=== PATIENT | male | born 1960 | race Caucasian/White ===

== ENCOUNTER 2016-07-29 15:36 | Inpatient (IN) | payer MEDICARE, MEDICAID ==
[~2016-07-29 15:36] MED LIST: AMBIEN10 MG PO; DILANTIN100 MG PO; IBUPROFEN200 M1 PO; LEXAPRO10 MG PO; LIPITOR20 MG PO; NORCO 5/325 TAB1 TAB PO; TRAZODONE50 MG
[2016-07-29] MEDS ORDERED: LIPITOR40 M1 PO (15:42)
[2016-07-29] MEDS ORDERED: LEXAPRO10 M2 PO ×2 (15:42→17:25)
[2016-07-29] MEDS ORDERED: TRAZODONE HCL50 M1 PO (15:42)
[2016-07-29] MEDS ORDERED: DILANTIN100 M1 PO (15:42)
[2016-07-29] MEDS ORDERED: DEPAKOTE ER500 M1 PO (15:42)
[2016-07-29 16:45] LABS: BASO % 0.2 % (0-2); EOS % 0.5 % (0-7); EOSINOPHIL ABSOLUTE COUNT 0.1 tho/cmm (0.0-0.7); HCT-HEMATOCRIT 39.7 % (36.0-53.5); HGB-HEMOGLOBIN 13.8 gm/dl (13.5-17.0); IMMATURE GRANULOCYTES ABSOLUTE 0.03 tho/cmm (0-0.03); IMMATURE GRANULOCYTES PERCENT 0.2 % (0-0.3); LYMPH % 7.5 % (20-45); LYMPH ABSOLUTE COUNT 0.9 tho/cmm (0.8-4.5); MCH (MEAN CORPUSCULAR HGB) 30.5 pg (28.0-32.0); MCHC MEAN CORPUSCULAR HGB CONC 34.8 % (32.0-36.0); MCV (MEAN CELL VOLUME) 87.8 fl (82.0-96.0); MONO % 8.3 % (0-12); NEUTROPHIL ABSOLUTE COUNT 10.2 tho/cmm (1.6-8.0); NEUTROPHIL-AUTOMATED 10.2 tho/cmm (1.6-8.0); NEUTROPHILS % 83.3 % (40-80); PLATELET COUNT 180 tho/cmm (150-450); RED BLOOD COUNT 4.52 mil/cmm (4.40-5.70); RED CELL DISTRIBUTION WIDTH 12.8 % (12.4-16.4); WHITE BLOOD COUNT 12.2 tho/cmm (4.0-10.0)
[2016-07-29 17:09] LABS: ALB/GLOB RATIO 0.8 (0.8-2.0); ALBUMIN 3.7 g/dl (3.5-5.0); ALCOHOL (ETOH) <10 mg/dl (<10); ALKALINE PHOSPHATASE 104 U/L (33-138); ALT/SGPT 23 U/L (12-78); ANION GAP 13 mmol/L (0-20); AST/SGOT 16 U/L (10-40); BILIRUBIN,TOTAL 0.4 mg/dl (0.0-1.5); BLOOD UREA NITROGEN 16 mg/dl (6-24); CALCIUM 9.3 mg/dl (8.5-10.5); CARBON DIOXIDE-VENOUS 30 mmol/L (22-32); CHLORIDE 99 mmol/l (96-110); CREATININE 0.91 mg/dl (0.60-1.30); GLUCOSE 110 mg/dL (70-110); LIPASE 159 U/L (73-393); MAGNESIUM 2.2 mg/dl (1.3-2.6); PHOSPHOROUS 3.6 mg/dl (2.5-4.9); POTASSIUM 3.7 mmol/L (3.7-5.1); SODIUM 138 mmol/L (135-145); VALPROIC ACID (DEPAKOTE) 36 ug/ml (50-100); eGFR VALUE FOR BLACK >90 mL/Min
[2016-07-29 17:15] LABS: PROTHROMBIN TIME 11.4 SECONDS (9.0-13.6)
[2016-07-29] MEDS ORDERED: VITAMIN D31000 UNI3 PO (17:25)
[2016-07-29] MEDS ORDERED: TYLENOL WITH C1 EACH PO (17:26)
[2016-07-29] MEDS ORDERED: OS-CAL 500+D31 EAC1 PO (17:26)
[2016-07-29] MEDS ORDERED: AMOXICILLIN875 M1 PO (17:26)
[2016-07-29 20:55] LABS: URINE BILIRUBIN SMALL (NEG); URINE BLOOD MODERATE (NEG); URINE GLUCOSE (UA) NEGATIVE (NEG); URINE KETONE MODERATE (NEG); URINE LEUKOCYTE ESTERASE POSITIVE (NEG); URINE NITRITE NEGATIVE (NEG); URINE PROTEIN MODERATE (NEG)
[2016-07-29 20:56] LABS: URINE APPEARANCE HAZY; URINE COLOR YELLOW
[2016-07-29 21:04] LABS: URINE EPITHELIAL CELLS 0-1 /[HPF] (0-10)
[2016-07-29 21:05] LABS: URINE BACTERIA 1+
[2016-07-30 05:52] LABS: BASO % 0.2 % (0-2); EOS % 1.1 % (0-7); EOSINOPHIL ABSOLUTE COUNT 0.1 tho/cmm (0.0-0.7); HCT-HEMATOCRIT 34.5 % (36.0-53.5); HGB-HEMOGLOBIN 11.8 gm/dl (13.5-17.0); IMMATURE GRANULOCYTES ABSOLUTE 0.02 tho/cmm (0-0.03); IMMATURE GRANULOCYTES PERCENT 0.2 % (0-0.3); LYMPH % 10.9 % (20-45); LYMPH ABSOLUTE COUNT 1.1 tho/cmm (0.8-4.5); MCHC MEAN CORPUSCULAR HGB CONC 34.2 % (32.0-36.0); MCV (MEAN CELL VOLUME) 87.8 fl (82.0-96.0); MEAN PLATELET VOLUME 10.8 cmc (9.4-12.4); MONO % 12.4 % (0-12); MONOCYTE ABSOLUTE COUNT 1.3 tho/cmm (0.0-1.2); NEUTROPHIL ABSOLUTE COUNT 7.7 tho/cmm (1.6-8.0); NEUTROPHIL-AUTOMATED 7.7 tho/cmm (1.6-8.0); NEUTROPHILS % 75.2 % (40-80); PLATELET COUNT 152 tho/cmm (150-450); RED BLOOD COUNT 3.93 mil/cmm (4.40-5.70); RED CELL DISTRIBUTION WIDTH 12.9 % (12.4-16.4); WHITE BLOOD COUNT 10.3 tho/cmm (4.0-10.0)
[2016-07-30 06:11] LABS: ANION GAP 12 mmol/L (0-20); BLOOD UREA NITROGEN 13 mg/dl (6-24); CALCIUM 8.5 mg/dl (8.5-10.5); CARBON DIOXIDE-VENOUS 28 mmol/L (22-32); CHLORIDE 102 mmol/l (96-110); CREATININE 0.83 mg/dl (0.60-1.30); GLUCOSE 106 mg/dL (70-110); POTASSIUM 3.9 mmol/L (3.7-5.1); SODIUM 138 mmol/L (135-145); eGFR VALUE FOR BLACK >90 mL/Min
[2016-07-30 06:15] LABS: TSH-THYROID STIMULATING HORM. 1.32 uIU/ml (0.40-3.80)
[2016-07-30] MEDS ORDERED: NORCO 5-325 TA1 EACH PO (14:52)
[2016-07-30] MEDS ORDERED: PHENYTOIN SODI100 M2 PO (14:59)
[2016-07-30] MEDS ORDERED: ZOFRAN4 M2 SL ×2 (15:01→15:04)
== END 2016-07-30 17:40 | DRG 86 ==
LOC: EDMED 15:36 → EMR2 19:10 → CCU 20:55
PROVIDERS: Emergency Medicine; Internal Medicine Cardiovascular Disease; ADMIT Hospitalist
DX: S06.5X0A Traumatic subdural hemorrhage without loss of consciousness, initial encounter (principal); I69.354 Hemiplegia and hemiparesis following cerebral infarction affecting left non-dominant side; Z91.14 Patient's other noncompliance with medication regimen; W19.XXXA Unspecified fall, initial encounter; Z85.038 Personal history of other malignant neoplasm of large intestine; G40.909 Epilepsy, unspecified, not intractable, without status epilepticus; E78.5 Hyperlipidemia, unspecified; H91.90 Unspecified hearing loss, unspecified ear; F17.210 Nicotine dependence, cigarettes, uncomplicated; G47.00 Insomnia, unspecified; Z23 Encounter for immunization
CPT/HCPCS: G0009; G0480; J1953; J2270; J2405; J7030; Q2009

== ENCOUNTER 2016-07-31 21:28 | Inpatient (IN) | payer MEDICARE, MEDICAID ==
[~2016-07-31 21:28] MED LIST changes: +AMOXICILLIN875 M1 PO; +DEPAKOTE ER500 M1 PO; +DILANTIN100 M1 PO; +LEXAPRO10 M2 PO; +LIPITOR40 M1 PO; +NORCO 5-325 TA1 EACH PO; +OS-CAL 500+D31 EAC1 PO; +PHENYTOIN SODI100 M2 PO; +TRAZODONE HCL50 M1 PO; +TYLENOL WITH C1 EACH PO; +VITAMIN D31000 UNI3 PO; +ZOFRAN4 M2 SL
[2016-07-31 23:00] LABS: BASO % 0.3 % (0-2); EOS % 2.5 % (0-7); EOSINOPHIL ABSOLUTE COUNT 0.3 tho/cmm (0.0-0.7); HCT-HEMATOCRIT 35.2 % (36.0-53.5); HGB-HEMOGLOBIN 12.6 gm/dl (13.5-17.0); IMMATURE GRANULOCYTES ABSOLUTE 0.02 tho/cmm (0-0.03); IMMATURE GRANULOCYTES PERCENT 0.2 % (0-0.3); LYMPH % 16.7 % (20-45); LYMPH ABSOLUTE COUNT 1.7 tho/cmm (0.8-4.5); MCH (MEAN CORPUSCULAR HGB) 30.5 pg (28.0-32.0); MCHC MEAN CORPUSCULAR HGB CONC 35.8 % (32.0-36.0); MCV (MEAN CELL VOLUME) 85.2 fl (82.0-96.0); MONO % 10.9 % (0-12); MONOCYTE ABSOLUTE COUNT 1.1 tho/cmm (0.0-1.2); NEUTROPHIL ABSOLUTE COUNT 6.9 tho/cmm (1.6-8.0); NEUTROPHIL-AUTOMATED 6.9 tho/cmm (1.6-8.0); NEUTROPHILS % 69.4 % (40-80); PLATELET COUNT 156 tho/cmm (150-450); RED BLOOD COUNT 4.13 mil/cmm (4.40-5.70); RED CELL DISTRIBUTION WIDTH 12.4 % (12.4-16.4); WHITE BLOOD COUNT 9.9 tho/cmm (4.0-10.0)
[2016-07-31 23:22] LABS: ANION GAP 11 mmol/L (0-20); BLOOD UREA NITROGEN 11 mg/dl (6-24); CALCIUM 8.5 mg/dl (8.5-10.5); CARBON DIOXIDE-VENOUS 30 mmol/L (22-32); CHLORIDE 98 mmol/l (96-110); GLUCOSE 86 mg/dL (70-110); POTASSIUM 3.5 mmol/L (3.7-5.1); SODIUM 135 mmol/L (135-145); VALPROIC ACID (DEPAKOTE) 43 ug/ml (50-100); eGFR VALUE FOR BLACK >90 mL/Min
[2016-08-01] MEDS ORDERED: PHENYTOIN50 MG PO (12:54)
[2016-08-05] MEDS ORDERED: DILANTIN100 M1 PO ×5 (12:47→12:52)
== END 2016-08-07 14:13 | disposition home health service (06) | DRG 65 ==
LOC: EDMED 21:28 → EMR2 08-01 00:44 → 5EB 08-01 01:10
PROVIDERS: Emergency Medicine; ADMIT Hospitalist
PROC: 3E0F7GC Introduction of Other Therapeutic Substance into Respiratory Tract, Via Natural or Artificial Opening (ICD-10-PCS; 2016-08-01)
PROC: 4A10X4Z Monitoring of Central Nervous Electrical Activity, External Approach (ICD-10-PCS; principal; 2016-08-02)
DX: I62.01 Nontraumatic acute subdural hemorrhage (principal); I69.354 Hemiplegia and hemiparesis following cerebral infarction affecting left non-dominant side; K27.7 Chronic peptic ulcer, site unspecified, without hemorrhage or perforation; G40.909 Epilepsy, unspecified, not intractable, without status epilepticus; E78.5 Hyperlipidemia, unspecified; H90.11 Conductive hearing loss, unilateral, right ear, with unrestricted hearing on the contralateral side; Z86.69 Personal history of other diseases of the nervous system and sense organs; F17.210 Nicotine dependence, cigarettes, uncomplicated; Z91.81 History of falling; Z99.3 Dependence on wheelchair; Z51.5 Encounter for palliative care
CPT/HCPCS: J1170; J2270; J2405